=== PATIENT | female | born 1985 | race Caucasian/White ===

== ENCOUNTER 2020-01-14 12:51 | Emergency (ER) | payer OTHER, SELFPAY ==
[2020-01-14 12:57] VITALS: BP 127/85; PULSE 95; RESP 18; TEMP 37.1; O2SAT 98; BMI 37.8
--- NOTE | 2020-01-14 12:57 | W.ED.ABDPA2 ---
HPI - Abdominal Pain General: Chief Complaint: Abdominal Pain Stated Complaint: 6 weeks preg/cramping Time Seen by Provider: 01/14/20 12:57 Source: patient Mode of arrival: ambulatory Limitations: no limitations History of Present Illness: HPI narrative: Patient comes in today for complaints of right lower abdominal pain across to her left side of the abdomen. Patient reports being 6 weeks . Patient denies any nausea vomiting or high fever. Patient appears well. Patient appears in no pain. Patient has had 3 previous pregnancies with 2 live births. Patient reports last 2 births were done . Patient denies any other surgeries except one D&C after her miscarriage. MD elicited complaint: abdominal pain Review of Systems General: Reports: 10 or more systems reviewed and unremarkable except in HPI and below : Reports: vaginal discharge and pelvic pain PFSH ED PFSH: Social History Smoking and tobacco status: never smoked Physical Exam Const: COMMON NORMALS: no acute distress and patient oriented x3 GENERAL APPEARANCE: cooperative HENMT: COMMON NORMALS: normocephalic and Normal external nose present HEAD & SCALP: normal to inspection and normocephalic NOSE: Normal external nose present MOUTH: Normal oral and palatal mucosa present Eye: GENERAL EYE: appearance normal, both eyes and all related structures Neck/C-Spine: COMMON NORMALS: full ROM Chest: COMMONS NORMALS: normal inspection of the chest Resp: COMMON NORMALS: normal respiratory effort EFFORT & INSPECTION: Yes able to speak in complete sentences Cardio: COMMON NORMALS: regular rate and regular rhythm RATE: regular rate RHYTHM: regular rhythm GI: COMMON NORMALS: non-tender : COMMON NORMALS: Yes no CVA tenderness BLADDER/KIDNEY EXAM: Yes no CVA tenderness Back/Pelvis: COMMON NORMALS: no CVA tenderness and thoracic and lumbar spine normal to inspection Extremity: COMMON NORMALS: normal to inspection Neuro: COMMON NORMALS: patient oriented x3 and moves all extremities Psych: COMMON NORMALS: mental status grossly normal and cooperative Skin: COMMON NORMALS: no rashes or lesions noted GENERAL SKIN EXAM: no rashes or lesions noted Course Vital Signs: Vital signs: Vital Signs Temperature 98.8 F 01/14/20 12:57 Pulse Rate 95 01/14/20 12:57 Respiratory Rate 18 01/14/20 12:57 Blood Pressure 127/85 01/14/20 12:57 Pulse Oximetry 98 01/14/20 12:57 MDM - Abdominal Pain MDM Narrative: Medical decision making narrative: Patient comes in today for complaints of pelvic pain and recent of about 6 weeks. Patient appears well. Patient appears in mild pain. Exam notes abdomen soft nontender. Pelvic exam noted a closed cervical office without any bleeding. Respirations were even lungs were clear to auscultation. Skin was warm and dry. Differential diagnosis includes but not limited to threatened miscarriage, urinary tract infection, STI. Wet prep was negative. CBC and CMP were normal. Urinalysis was clear. Reviewed exam with patient with recommendations for treatment and follow-up. Patient reported understanding and agreed to plan. Lab Data: Labs: Lab Results 01/14/20 01/14/20 01/14/20 Range/Units 13:21 13:52 13:52 WBC 9.7 (4.0-10.0) 10^3/ uL RBC 5.02 (4.1-5.3) 10^6/u L Hgb 13.9 (11.5-15.3) g/dL Hct 42.2 (37.0-47.0) % MCV 84.1 (81-99) fL MCH 27.7 L (28.0-34.0) pg MCHC 32.9 (30.0-36.0) g/dL RDW 13.2 (12.1-15.1) % Plt Count 285 (130-400) 10^3/c mm MPV 10.2 (7.4-10.4) fL Neut % (Auto) 66.5 % Lymph % (Auto) 23.3 % Howell % (Auto) 5.5 % Eos % (Auto) 4.2 % Baso % (Auto) 0.3 % Neut # (Auto) 6.5 (1.8-7.7) 10^3/u L Lymph # (Auto) 2.3 (0.8-4.8) 10^3/u L Howell # (Auto) 0.5 (0.2-0.9) 10^3/u L Eos # (Auto) 0.4 (0.0-0.8) 10^3/u L Baso # (Auto) 0.0 (0.0-0.1) 10^3/u L Nucleated RBC % (a uto) 0 % Nucleated RBCs # 0.0 /100WBC Sodium 136 (136-145) mmol/L Potassium 3.5 (3.5-5.1) mmol/L Chloride 100 (98-107) mmol/L Carbon Dioxide 20 L (22-29) mmol/L Anion Gap 19.5 H (5-19) BUN 6 (6-20) mg/dL Creatinine 0.5 (0.5-0.9) mg/dL GFR Calculation 142.1 H (90-130) mL/min Glucose 93 (65-115) mg/dL Calculated Osmolal ity 277 L (285-295) mOsm/k g Calcium 9.9 (8.5-10.5) mg/dL Total Bilirubin 0.4 (0.15-1.2) mg/dL AST 21 (0-32) U/L ALT 31 (0-33) U/L Alkaline Phosphata se 55 (35-105) IU/L Total Protein 8.0 (6.6-8.7) g/dL Albumin 4.6 (3.5-5.2) g/dL Globulin 3.4 (1.3-4.6) g/dL Ser , [place] [address].00 mIU/mL Urine Color Straw (Yellow) Urine Appearance Clear (CLEAR) Urine pH 7.0 (5-7) Ur Specific Gravit y 1.005 (1.005-1.030) Urine Protein Neg (Negative) Urine Glucose (UA) Norm (Normal) Urine Ketones 1+ H (Negative) Urine Blood Neg (Negative) Urine Nitrate Negative (Negative) Urine Bilirubin Neg (NEGATIVE) Urine Urobilinogen Norm (Negative) mg/dL Ur Leukocyte [place] Negative (Negative) Discharge Plan Discharge Patient Disposition: Home, Self-Care Clinical Impression: Abdominal pain Qualifiers: Abdominal location: right lower quadrant Qualified Code(s): R10.31 - Right lower quadrant pain Condition: Stable Prescriptions: No Action Tylenol 325 mg Tablet 650 mg PO PRN RF: 0 2 tab PO DAILY RF: 0 Discharge Orders: Discharge Order (Routine); Ordered 01/14/20 Ordered By: Chriss Jiang Referrals: Cody Cartwright MD [Primary Care Provider] - Discharge Diet: Usual diet Discharge Activity: Increase activity as tolerated Patient Instructions: Abdominal Pain (ED) Activity Restrictions/Additional Instructions: Drink plenty of water. Continue with routine medication. Healthy diet and exercise. Follow-up with primary care or MATERIALS SPECIALIST in 1 week for recheck. Return to the ER for high fever, bleeding greater than 1 pad an hour. Or new concerns. Coding Level of Care Code ED [employer] Department Supervisor for Nitza Morley Exam Comprehensive
--- NOTE | 2020-01-14 13:03 | US_ITS ---
WS: [id number] TRANSABDOMINAL FIRST TRIMESTER ULTRASOUND HISTORY: early , abd cramping COMPARISON: None available. FINDINGS: Cervical length is 3.43 cm; closed. Single live intrauterine . Luck rump length measuring 0.20 cm. 6 weeks gestation Yolk sac measures 0.2 cm. 6 weeks 2 days gestation Gestational sac measures 14.61 mm cm. cardiac tones 103 BPM. Estimated date of delivery September 10, 2020. Uterus measures 10.2 cm x 5.08 x cm 6.79 cm. Right ovary measures 3.0 cm x 2.5 cm x 1.9 cm. Left ovary measures 3.5 cm x 3.6 cm x 1.5 cm. US/US OB <=14 wk fetus w transvag IMPRESSION: Early at approximately 6 weeks gestation with a due date September 10, 2020 We recommend follow-up scanning be made in one week to reaffirmed that the fetu s is viable at this time appears to be viable.
[2020-01-14 13:29] LABS: Add Urine Microscopic? NO
[2020-01-14 13:40] LABS: Bilirubin Urine Neg (NEGATIVE); Blood Urine Neg (Negative); Glucose Urine UA Norm (Normal); Ketones Urine 1+ (Negative); Leukocyte Esterase Urine Negative (Negative); Nitrate Urine Negative (Negative); Protein Urine Neg (Negative); Specific Gravity, Urine 1.005 (1.005-1.030); Urine Appearance Clear (CLEAR); Urine Color Straw (Yellow); Urobilinogen Urine Norm (Negative)
[2020-01-14 14:12] LABS: Basophils % 0.3 %; Eosinophils # 0.4 10^3/uL (0.0-0.8); Eosinophils % 4.2 %; Hematocrit 42.2 % (37.0-47.0); Hemoglobin 13.9 g/dL (11.5-15.3); Lymphocytes # 2.3 10^3/uL (0.8-4.8); Lymphocytes % 23.3 %; Mean Corpuscular HGB Conc 32.9 g/dL (30.0-36.0); Mean Corpuscular Hemoglobin 27.7 pg (28.0-34.0); Mean Corpuscular Volume 84.1 fL (81-99); Mean Platelet Volume 10.2 fL (7.4-10.4); Monocytes # 0.5 10^3/uL (0.2-0.9); Monocytes % 5.5 %; Neutrophils # 6.5 10^3/uL (1.8-7.7); Neutrophils % 66.5 %; Nucleated Red Blood Cells % 0 %; Platelet Count 285 10^3/cmm (130-400); Red Blood Count 5.02 10^6/uL (4.1-5.3); Red Cell Distribution Width 13.2 % (12.1-15.1); White Blood Count 9.7 10^3/uL (4.0-10.0)
[2020-01-14 14:41] LABS: Alanine Aminotransferase 31 U/L (0-33); Albumin Level 4.6 g/dL (3.5-5.2); Alkaline Phosphatase 55 IU/L (35-105); Anion Gap 19.5 (5-19); Aspartate Amino Transferase 21 U/L (0-32); Blood Urea Nitrogen 6 mg/dL (6-20); Calcium 9.9 mg/dL (8.5-10.5); Carbon Dioxide 20 mmol/L (22-29); Chloride 100 mmol/L (98-107); Creatinine Clr Calc Pharmacy 183.7594; Globulin 3.4 g/dL (1.3-4.6); Glomerular Filtration Rate 142.1 mL/min (90-130); Glucose 93 mg/dL (65-115); Osmolality Calculated 277 mOsm/kg (285-295); Potassium 3.5 mmol/L (3.5-5.1); Sodium 136 mmol/L (136-145); Total Bilirubin 0.4 mg/dL (0.15-1.2)
[2020-01-14 15:03] VITALS: BP 124/75; PULSE 78; RESP 18; O2SAT 99
== END 2020-01-14 15:19 | disposition home or self-care (01) ==
PROVIDERS: Emergency Provider Nurse Practitioner Family; PCP Family Medicine
DX: O26.891 Other specified pregnancy related conditions, first trimester (principal); R10.31 Right lower quadrant pain; Z3A.01 Less than 8 weeks gestation of pregnancy
CPT/HCPCS: 12345; 36415; 76801; 76817; 80053; 81003; 84702; 85025; 86900; 87210; 87491; 87591; 87661; 99283; E0352

== ENCOUNTER 2020-08-31 05:00 | Inpatient (IN) | payer OTHER, SELFPAY ==
--- NOTE | 2020-08-22 10:50 | ANES.PREANE2 ---
Pre-Anesthetic Assessment Pre-Anesthetic Assessment: Height/Weight: Height 1.63 m Preop Diagnosis: Repeat C/S Proposed Procedure: Operation Date: 08/31/20 07:00 Proposed Procedures p Section Repeat With Tubal(Not Applicable) - Cody Cartwright MD Was Beta Horacio taken within 24 hours: N/A Social: Social History: No alcohol and No tobacco Exam: Pre-Anes Outpt Exam: alert, oriented x 3, clear to auscultation bilaterally and regular rate & rhythm Airway: Submandibular: WNL Cervical ROM: WNL MP: 2 Dentition: Full History/ROS: No significant history except as noted Anesthetic Plan: ASA status: 2 Anesthesia: Choice Other: Discussed SAB PFSH Anesthesia PFSH: Social History Smoking and tobacco status: never smoked Data Anesthesia Cardiac Studies: No Data to Display
[2020-08-31] VITALS (23 sets, daily range): BP systolic 97–151; BP diastolic 55–78; PULSE 77–96; RESP 15–18; TEMP 36.6–36.8; O2SAT 95–98; BMI 40.8
[2020-08-31] MEDS: lactated ringers 1,000 ML 999 ML IV (05:50)
[2020-08-31 06:09] LABS: Basophils # 0.1 10^3/uL (0.0-0.1); Basophils % 0.4 %; Eosinophils # 0.3 10^3/uL (0.0-0.8); Eosinophils % 2.4 %; Hematocrit 36.4 % (37.0-47.0); Hemoglobin 11.5 g/dL (11.5-15.3); Lymphocytes # 2.6 10^3/uL (0.8-4.8); Lymphocytes % 19.3 %; Mean Corpuscular HGB Conc 31.6 g/dL (30.0-36.0); Mean Corpuscular Hemoglobin 24.6 pg (28.0-34.0); Mean Corpuscular Volume 77.8 fL (81-99); Mean Platelet Volume 10.7 fL (7.4-10.4); Monocytes # 0.9 10^3/uL (0.2-0.9); Monocytes % 6.6 %; Neutrophils # 9.33 10^3/uL (1.8-7.7); Neutrophils % 69.7 %; Nucleated Red Blood Cells % 0 %; Platelet Count 297 10^3/cmm (130-400); Red Blood Count 4.68 10^6/uL (4.1-5.3); Red Cell Distribution Width 14.4 % (12.1-15.1); White Blood Count 13.4 10^3/uL (4.0-10.0)
[2020-08-31] MEDS: metoclopramide 5 mg/mL SDV 2 mL 10 MG IVP (06:54)
[2020-08-31] MEDS: famotidine 20 mg/2 mL INJ IVP (06:54)
[2020-08-31] MEDS: citric acid-sodium citrate 30 mL UDC PO (06:54)
--- NOTE | 2020-08-31 06:54 | P.HP_ITS ---
Providers/Chief Complaint Admitting Physician: Cody Cartwright MD Primary Care Provider: Cody Cartwright MD Chief Complaint: c section HPI MATERIAL DAMAGE ADJUSTER History of Present Illness Shima Cheatham is a 34 year old female 4 para 2-0-1-2 with an estimated gestational age of 39 weeks who presents for a repeat section. Her has been unremarkable. There have been no complications. Her lab work was also been unremarkable. She is Covid negative. She is GBS negative. Her blood type is O+. The remainder of her tests are within normal limits. Present Details : 4 Para: 2 Labs Rubella: Immune RPR: Negative GBS: Negative Review of Systems General: Reports: 10 or more systems reviewed and unremarkable except in HPI and below Const: Reports: fatigue; Denies: fever(s) Eyes: Denies: change in vision Card: Denies: chest pain Musc: Reports: back pain Jules/Lymph: Denies: easy bruising Medications/Allergies Home Medications Medication Instructions Recorded Confirmed Last Taken Type 2 tab PO DAILY 01/14/20 08/31/20 08/30/20 14:00 History Allergies Allergy/AdvReac Type Severity Reaction Status Date / Time [place] nut Allergy Unknown Verified 08/31/20 06:08 egg Allergy Unknown Verified 08/31/20 06:08 PFSH MATERIAL DAMAGE ADJUSTER PFSH: Social History Smoking and tobacco status: never smoked Vitals/I&O/Wt Last Vital Signs Temp 98.1 F 08/31/20 06:00 Pulse 96 08/31/20 06:01 Resp 16 08/31/20 05:33 BP 119/72 08/31/20 06:01 Weight last 48 hrs Weight 238 lb Physical Exam Const: COMMON NORMALS: patient oriented x3 and alert HENMT: COMMON NORMALS: moist oral mucous membranes HEAD & SCALP: normal to inspection Chest: COMMONS NORMALS: normal inspection of the chest Resp: COMMON NORMALS: clear to auscultation bilaterally AUSCULTATION: clear to auscultation bilaterally Cardio: COMMON NORMALS: regular rate and regular rhythm RATE: regular rate RHYTHM: regular rhythm GI: INSPECTION: Yes normal to inspection and Yes other (Gravid) Extremity: COMMON NORMALS: normal to inspection GENERAL: Yes edema (Trace) Neuro: COMMON NORMALS: patient oriented x3, moves all extremities and no se nsory deficits noted SENSORIUM/ORIENTATION: Yes alert Psych: COMMON NORMALS: mental status grossly normal Skin: COMMON NORMALS: no rashes or lesions noted GENERAL SKIN EXAM: no rashes or lesions noted Data : 08/31/20 05:30 A&P Assessment and plan (1) Previous section: We will proceed with a scheduled repeat section as well as a bi lateral tubal ligation. I discussed the risks with the patient and her previously including the risks of bleeding, infection, and damage to intra- abdominal organs. I have also discussed the 1 and 200 chance of becoming again with a tubal ligation. We have also discussed increased risk of a ectopic with a tubal ligation as well. There are no further questions and they wish to proceed. Status: Acute (2) 39 weeks gestation of : Status: Acute (3) Sterilization: Status: Acute Attestations Medical Necessity Statement*: Routine and post care Coding Level of Care Code Acute Director Of Mobile Marketing for Chg Fwd Diagnoses Previous section Z98.891 39 weeks gestation of Z3A.39 Sterilization Z30.2
--- NOTE | 2020-08-31 08:44 | PM.OP ---
Operative Report Date of procedure: August 31, 2020 Pre-op Diagnosis: Repeat C/S, desires sterilization Post-op diagnosis: same Procedure Done: 1. Repeat lower transverse section 2. Intraoperative a bilateral tubal ligation using a modified Buck technique Specimens removed/disposition: 1. Female infant with Apgars of 8 and 8, and a weight of 7 pounds 1 ounce Pathology: Bilateral fallopian tube segments with the right segment being tagged Surgeon: Cody Cartwright Anesthesia: Other (Spinal) Estimated blood loss (mL): 800 Complications: None Condition: stable Disposition: floor (OB) Brief History: Refer to history and physical Procedure: The patient was brought back to the operating room where she was prepped and draped in usual sterile fashion. Anesthesia was found to be adequate. A lower transverse skin incision was then made with a #10 blade. I then dissected down to the underlying subcutaneous tissue until arriving at the prerectal fascia. The fascia was then nicked with the scalpel bilaterally. The fascial incisions were then carried laterally with Oneal scissors. Attention was then turned to the superior aspect of the incision which was grasped with kochers and tented up away from the underlying rectus abdominis muscles. The muscles were then dissected away from the fascia manually, and later with Oneal scissors. Attention was then turned to the inferior aspect of the incision, and the fascia was dissected away from the underlying muscle in similar fashion. The rectus abdominis muscles were then spread manually. The peritoneum was entered manually. Excellent visualization of the uterus was noted. A lower transverse uterine incision was then made with a #10 blade. Upon arriving at the intrauterine cavity, the uterine incision was then extended manually. The infant was noted to be in vertex position. The baby was delivered without difficulty. There was no meconium. There was no nuchal cord. The remainder of the body was then delivered and placed on the abdomen. The cord was cut and clamped. The baby was then handed to the waiting nurse. The placenta was removed intact. The uterus was externalized. The intrauterine cavity was cleansed of any remaining debris. The uterine incision was reapproximated in 2 layers. The first layer was performed with 0 Vicryl in a running locked stitch. The second layer was an imbricating stitch also using 0 Vicryl. Attention was then turned to the the right fallopian tube which was ligated cut and cauterized in a modified Buck fashion. Attention was then turned to the left fallopian tube which was also ligated cut and cauterized in similar fashion. The uterus was replaced into the abdomen. The peritoneum was then irrigated with warm saline. I reexamined the uterine incision and found it to be hemostatic. The rectus abdominis muscles were then reapproximated using 0 Vicryl in a running stitch. The fascia was then reapproximated using 0 Vicryl in running stitch. The subcutaneous tissue was then reapproximated using 0 Vicryl running stitch. The skin was then reapproximated using a Sameer needle in a running subcuticular stitch. Steri's were placed. A sterile dressing was placed. All counts were correct x2. Both the mother and baby were in stable condition. Associated Problem List Diagnoses (1) Sterilization: (2) 39 weeks gestation of : (3) Previous section:
--- NOTE | 2020-08-31 09:04 | PC.NURSE ---
Pt transferred to room from surgery per bed. Mother holding while breast feeding during transfer. Pt and oriented to room, no questions or concerns noted.
--- NOTE | 2020-08-31 11:04 | ANE.PACU2 ---
Inpatient post-anesthesia follow up: Airway intact: Yes Vital signs: Temperature 98.1 F Pulse Rate 89 Respiratory Rate 15 Blood Pressure 109/64 Pulse Oximetry 96 Oxygen Delivery Me thod Room Air Oxygen Flow Rate Fraction of Inspir ed Oxygen Hydration adequate: Yes Nausea and vomiting: No Pain level: 2 Mental status: Baseline
[2020-08-31] MEDS: HYDROcodone-acetaminophen 5-325 mg Tablet PO (11:07)
[2020-08-31] MEDS: ondansetron 2 mg/ML SDV 2 mL 4 MG IVP (11:08)
[2020-08-31] MEDS: ketorolac 30 mg/mL INJ IVP ×2 (15:03→21:20)
[2020-08-31] MEDS: dextrose 5%-lactated ringers 1,000 ML 125 ML IV (15:05)
[2020-08-31] MEDS: docusate sodium 100 mg Capsule PO (17:44)
[2020-08-31] MEDS: lanolin oint 7 gm 1 APPLIC TOPICAL (17:44)
[2020-08-31] MEDS: sodium chloride 0.9% 500 ML 999 ML IV (17:44)
[2020-08-31] MEDS: ferrous sulfate EC 325 mg Tablet PO (17:44)
[2020-08-31 20:30] LABS: Hematocrit 32.3 % (37.0-47.0); Hemoglobin 10.1 g/dL (11.5-15.3); Mean Corpuscular HGB Conc 31.3 g/dL (30.0-36.0); Mean Corpuscular Hemoglobin 25.4 pg (28.0-34.0); Mean Corpuscular Volume 81.2 fL (81-99); Mean Platelet Volume 10.9 fL (7.4-10.4); Platelet Count 237 10^3/cmm (130-400); Red Blood Count 3.98 10^6/uL (4.1-5.3); Red Cell Distribution Width 14.4 % (12.1-15.1); White Blood Count 13.1 10^3/uL (4.0-10.0)
[2020-09-01] MEDS: ketorolac 30 mg/mL INJ IVP (02:25)
[2020-09-01 02:30] VITALS: BP 110/70; PULSE 72; RESP 16; TEMP 36.6; TEMP 36.7; O2SAT 96
[2020-09-01] MEDS: prenatal vitamin Capsule 1 CAP PO (08:50)
[2020-09-01] MEDS: ferrous sulfate EC 325 mg Tablet PO (08:51)
[2020-09-01] MEDS: ibuprofen 800 mg tablet PO (08:51)
[2020-09-01] MEDS: docusate sodium 100 mg Capsule PO (08:51)
--- NOTE | 2020-09-01 09:10 | PM.OBGYDC ---
Discharge Providers WORKERS COMPENSATION ANALYST Date of Admission: 08/31/20 05:00 Date of Discharge: 09/01/20 Attending Provider at Admission: Cody Cartwright MD Attending Provider at Discharge: Cody Cartwright MD Primary Care Provider: Cody Cartwright MD Diagnoses at Discharge Discharge Diagnosis (1) Sterilization: Status: Acute (2) 39 weeks gestation of : Status: Acute (3) Previous section: Status: Acute Reason for Visit Reason for Visit: c section Hospital Course Hospital Course The patient presented to the hospital for a repeat section and a bilateral tubal ligation. The procedure was unremarkable. Her course was also unremarkable. Her pain was well controlled. Her bleeding was within normal limits. She breast-fed well. She had flatus same day of the procedure. She has tolerated a regular diet. Urine output was adequate. There were no concerns or complications. Information Peripartum Data: Delivery Method: Physical Exam Narrative: EXAM NARRATIVE: She is in no acute distress Lungs are clear auscultation bilaterally Her heart has a regular rate and rhythm Her fundus is below the umbilicus and firm Her dressing is clean, dry and intact Her extremities have trace edema Urinary Catheter Management^: [place]: Cath Placed During This Visit: yes, but has since been removed by the nurse Reason for Continuing Indwelling Catheter: Required Immobilization for Trauma or Surgery or Anesthesia Urinary Catheter Date of Insertion: 08/31/20 Urinary Catheter Time of Insertion: 07:20 Date Urinary Catheter Removed: 08/31/20 Time Urinary Catheter Discontinued: 23:30 Discharge Data Data Completed and Pending: Pending at discharge Category Date Time Status Pathology: Surgic al [PTH] Routine Pth 08/31/20 15:20 Ordered Labs from last 24 hours 08/31/20 19:56 WBC 13.1 H RBC 3.98 L Hgb 10.1 L Hct 32.3 L MCV 81.2 MCH 25.4 L MCHC 31.3 RDW 14.4 Plt Count 237 MPV 10.9 H Vitals: Last Vital Signs Temp 98.0 F 09/01/20 02:30 Pulse 72 09/01/20 02:30 Resp 16 09/01/20 02:30 BP 110/70 09/01/20 02:30 Pulse Ox 96 09/01/20 02:30 Discharge Plan Discharge Patient Disposition: Home Condition: Stable Prescriptions: New ibuprofen 800 mg Tablet 800 mg PO TID Qty: 30 RF: 0 Percocet 5-325 mg tablet 1 - 2 tab PO Q6H Qty: 20 RF: 0 Continued 2 tab PO DAILY RF: 0 Discharge Orders: Discharge Order (Routine); Ordered 09/01/20 Ordered By: Cody Cartwright Referrals: Cody Cartwright MD [Primary Care Provider] - 4-7 days (Also set up appointment at 6 weeks for a check) Discharge Diet: Regular Discharge Activity: Limit activity as instructed Discharge Attestations WORKERS COMPENSATION ANALYST Time Spent in Discharge Care*: less than 30 min Coding Level of Care Code Acute Eyeglass Frame Truer for Chg Fwd Diagnoses Sterilization Z30.2 39 weeks gestation of Z3A.39 Previous section Z98.891
[2020-09-01 11:28] VITALS: BP 116/70; PULSE 87; RESP 15; TEMP 37.2; O2SAT 95
[2020-09-01] MEDS: acetaminophen 325 mg Tablet 650 MG PO (13:30)
[2020-09-01 14:00] VITALS: BP 118/74; PULSE 86; RESP 16; TEMP 37; O2SAT 95
== END 2020-09-01 14:20 | disposition home or self-care (01) | DRG 785 ==
PROVIDERS: Admitting Provider Family Medicine; PCP Family Medicine; Visit Provider Family Medicine
PROC: 10D00Z1 Extraction of Products of Conception, Low, Open Approach (ICD-10-PCS; CPT 59514; principal; 2020-08-31 07:00)
DX: O34.211 Maternal care for low transverse scar from previous cesarean delivery (principal); N85.8 Other specified noninflammatory disorders of uterus; Z3A.39 39 weeks gestation of pregnancy; Z37.0 Single live birth; Z30.2 Encounter for sterilization
CPT/HCPCS: 12345; 36415; 51702; 58611; 59409; 85025; 85027; 88302; 96374; 96375; J0690; J1885; J2274; J2405; J2765; J3490; J7040